=== PATIENT | male | born 1965 | race African-American/Black ===

== ENCOUNTER 2018-09-22 13:31 | Emergency (ER) | payer OTHER ==
[~2018-09-22] VITALS: Ht 182.9 cm; Wt 87.0 kg
[2018-09-22 13:43] VITALS: BP 157/97
[2018-09-22] MEDS ORDERED: KETOROLAC 60MG/2ML VIAL IM ONE (14:45)
== END 2018-09-22 15:07 | disposition home or self-care (01) ==
LOC: ER 13:31
DX: M25.562 Pain in left knee (principal); M25.552 Pain in left hip; Z91.81 History of falling; Z76.0 Encounter for issue of repeat prescription
CPT/HCPCS: 96372; 99283; J1885

== ENCOUNTER 2018-11-09 12:44 | Emergency (ER) | payer OTHER ==
[~2018-11-09] VITALS: Ht 182.9 cm; Wt 91.0 kg
[2018-11-09] MEDS ORDERED: KETOROLAC 30MG/ML VIAL IV ONE (14:45)
[2018-11-09 14:54] LABS: BASOPHILS % 0.8 % (0.0-2.0); EOSINOPHILS % 1.2 % (0.0-5.0); HEMATOCRIT. 46.5 % (42.0-52.0); HEMOGLOBIN. 15.9 g/dL (14.0-18.0); LYMPHOCYTES % 25.1 % (20.0-50.0); MEAN CORPUSCULAR HEMOGLOBIN 30.8 pg (28.0-32.0); MEAN CORPUSCULAR VOLUME 89.9 fL (80.0-94.0); MEAN PLATELET VOLUME 9.3 fl (7.4-10.4); MONOCYTES % 8.1 % (2.0-8.0); NEUTROPHILS % 64.8 % (40.0-76.0); PLATELET 197 x1000/uL (130-400); RED BLOOD CELL COUNT 5.18 mill/uL (4.7-6.1); RED CELL DISTRIBUTION WIDTH 12.9 % (11.6-14.6)
[2018-11-09 14:59] LABS: CHLORIDE 106 mEq/L (98-107)
[2018-11-09] MEDS ORDERED: HYDROCODONE/ACETAMINOPHEN 5/325MG TABLET PO ONE (16:15)
[2018-11-09 17:26] VITALS: BP 151/95
== END 2018-11-09 17:31 | disposition home or self-care (01) ==
LOC: ER 12:44
DX: R07.89 Other chest pain (principal)
CPT/HCPCS: 36415; 71045; 80053; 84484; 85025; 85379; 93005; 96374; 99284; J1885